=== PATIENT | male | born 1950 | race Caucasian/White ===

== ENCOUNTER 2018-05-15 17:22 | Observation (INO) | payer MEDICARE, OTHER ==
[~2018-05-15] VITALS: Ht 193 cm; Wt 122.5 kg
[2018-05-15] MEDS ORDERED: LISI20 PO ×2 (17:28→20:37)
[2018-05-15] MEDS ORDERED: Percocet 5-3251 EACH PO (17:29)
[2018-05-15] MEDS ORDERED: ZOLP5 PO (17:29)
[2018-05-15] MEDS ORDERED: Xanax0.5 MG PO (20:37)
[2018-05-15] MEDS ORDERED: CEPH500 PO (22:50)
[2018-05-15] MEDS ORDERED: OXYC1TAB11 PO (23:55)
[2018-05-16 01:10] LABS: BASOPHILS ABSOLUTE AUTO 0.03 K/mm3 (0.00-0.23); BASOPHILS PERCENT AUTO 0 % (0-2); EOSINOPHILS ABSOLUTE AUTO 0.04 K/mm3 (0.00-0.68); EOSINOPHILS PERCENT AUTO 0 % (0-6); Hematocrit 42.4 % (37.0-53.0); Hemoglobin 13.6 g/dL (13.5-17.5); IMMATURE GRAN ABSOLUTE AUTO 0.03 K/mm3 (0.00-0.10); IMMATURE GRAN PERCENT AUTO 0 % (0-1); LYMPHOCYTES ABSOLUTE AUTO 1.46 K/mm3 (0.84-5.20); LYMPHOCYTES PERCENT AUTO 14 % (21-46); MONOCYTES ABSOLUTE AUTO 0.71 K/mm3 (0.16-1.47); MONOCYTES PERCENT AUTO 7 % (4-13); Mean Corpuscular HGB 28.7 pg (26.0-34.0); Mean Corpuscular HGB Conc 32.1 g/dL (31.5-36.5); Mean Corpuscular Volume 90 fL (80-100); NEUTROPHILS ABSOLUTE AUTO 7.96 K/mm3 (1.96-9.15); NEUTROPHILS PERCENT AUTO 78 % (41-73); Platelet Count 318 K/mm3 (150-400); RDW Coefficient Variation 14.7 % (11.7-14.2); Red Blood Cell Count 4.74 M/mm3 (4.30-5.90); White Blood Cell Count 10.23 K/mm3 (4.00-11.30)
[2018-05-16 01:27] LABS: International Normalized Ratio 1.11; Prothrombin Time Results 11.4 Sec (9.7-11.5)
[2018-05-16 01:28] LABS: Anion Gap 5 mmol/L (6-16); Blood Urea Nitrogen 10 mg/dL (8-24); Bun/Creatinine Ratio 12.1 (12.0-20.0); CO2, Blood 28 mmol/L (21-32); Calcium, Blood 8.7 mg/dL (8.5-10.1); Chloride, Blood 108 mmol/L (98-108); Creatinine, Blood 0.83 mg/dL (0.60-1.20); Glomerular Filtration Rate >60 (60-); Glucose, Blood 119 mg/dL (70-99); Potassium, Blood 3.7 mmol/L (3.5-5.5); Sodium, Blood 141 mmol/L (136-145)
[2018-05-16] MEDS ORDERED: CELE100 PO (13:25)
[2018-05-16 19:29] LABS: Source, Urine Catheter
[2018-05-16 19:46] LABS: Appearance, Urine Clear (Clear); Bilirubin, Urine Neg (Neg); Blood, Urine Neg (Neg); Color, Urine Yellow (P-Yellow); Glucose Qualitative, Urine Neg (Neg); Ketones, Urine Neg (Neg); Leukocyte Esterase, Urine Neg (Neg); Nitrite, Urine Neg (Neg); Protein, Urine Neg (Neg); Urobilinogen, Urine NORM (Normal)
== END 2018-05-17 17:38 | disposition home or self-care (01) ==
LOC: ER 17:22 → SURS 17:23 → ER 23:12 → SURS 23:12
PROVIDERS: Emergency Medicine; Internal Medicine; Orthopaedic Surgery
PROC: 0SWRXJZ Revision of Synthetic Substitute in Right Hip Joint, Femoral Surface, External Approach (ICD-10-PCS; principal; 2018-05-16 14:30)
DX: T84.020A Dislocation of internal right hip prosthesis, initial encounter (principal); I10 Essential (primary) hypertension; M19.90 Unspecified osteoarthritis, unspecified site; M51.9 Unspecified thoracic, thoracolumbar and lumbosacral intervertebral disc disorder; F41.9 Anxiety disorder, unspecified; K91.1 Postgastric surgery syndromes; R01.1 Cardiac murmur, unspecified; Z87.891 Personal history of nicotine dependence; Z51.81 Encounter for therapeutic drug level monitoring
CPT/HCPCS: 27265; 36416; 72170; 73502; 80048; 81003; 85025; 85610; 85730; 93005; 93010; 93306; 96374; 96375; 96376; 97116; 97161; 97166; 97530; 97535; 99152; 99285-25; G0378; G8978; G8979; G8980; G8987; G8988; G8989; J0330; J0690; J1100; J1170; J2250; J2405; J3010; J7030; J7042; J7120

== ENCOUNTER 2023-07-12 11:52 | Emergency (ER) | payer MEDICARE, OTHER ==
[~2023-07-12] VITALS: Ht 193 cm; Wt 113.4 kg
[~2023-07-12 11:52] MED LIST: CELE100 PO; CEPH500 PO; LISI20 PO; OXYC1TAB11 PO; Percocet 5-3251 EACH PO; Xanax0.5 MG PO; ZOLP5 PO
[2023-07-12 15:42] LABS: Source, Urine Clean Catch
[2023-07-12] MEDS ORDERED: OMEP20ER PO (15:42)
[2023-07-12] MEDS ORDERED: METO25 PO (15:43)
[2023-07-12] MEDS ORDERED: Cyclobenzaprine5 MG PO (15:43)
[2023-07-12] MEDS ORDERED: TAMS.4ER PO (15:43)
[2023-07-12] MEDS ORDERED: TRAM50 PO (15:44)
[2023-07-12] MEDS ORDERED: OXYB5 PO (15:44)
[2023-07-12 15:55] LABS: Appearance, Urine Hazy (Clear); Bilirubin, Urine Neg (Neg); Blood, Urine 3+ (Neg); Glucose Qualitative, Urine Neg (Neg); Ketones, Urine Neg (Neg); Leukocyte Esterase, Urine 3+ (Neg); Nitrite, Urine Neg (Neg); Protein, Urine 2+ (Neg); Specific Gravity, Urine 1.015 (1.003-1.022); Urobilinogen, Urine NORM (Normal)
[2023-07-12 16:06] LABS: Color, Urine Pale Yellow (P-Yellow)
[2023-07-12 16:08] LABS: Bacteria Mod /hpf; Squamous Epithelial Cells Not Seen /hpf (Few); White Blood Cells, Urine 50-100 /hpf (0-5)
[2023-07-12] MEDS ORDERED: CEFP200 PO (16:13)
[2023-07-12 16:19] VITALS: BP 143/79
== END 2023-07-12 16:25 | disposition home or self-care (01) ==
LOC: ER 11:52
PROVIDERS: Physician Assistant
DX: T83.511A Infection and inflammatory reaction due to indwelling urethral catheter, initial encounter (principal); N39.0 Urinary tract infection, site not specified; I10 Essential (primary) hypertension; B96.89 Other specified bacterial agents as the cause of diseases classified elsewhere; Z79.899 Other long term (current) drug therapy; Z96.641 Presence of right artificial hip joint; Z46.6 Encounter for fitting and adjustment of urinary device
CPT/HCPCS: 51702; 81001; 87077; 87086; 87186; 99283-25